=== PATIENT | female | born 1960 | race Caucasian/White ===

== ENCOUNTER → 2017-02-11 | Outpatient (CLI) | payer OTHER | LOC: FIMAGING 07:55 | PROVIDERS: ATTEND Family Medicine | DX: Z12.31 Encounter for screening mammogram for malignant neoplasm of breast (principal) | CPT/HCPCS: G0202 ==

== ENCOUNTER 2017-02-28 14:49 | Emergency (ER) | payer OTHER ==
[2017-02-28 15:07] VITALS: BP 123/78; PULSE 74; RESP 16; TEMP 98.6; O2SAT 97
--- NOTE | 2017-02-28 15:25 | EDPHY ---
H & P Stated Complaint: tripped~ [employer] and hit right head area above eye. No LOC. Time Seen by Provider: 02/28/17 14:59 HPI/ROS: CHIEF COMPLAINT: Fall, black eye HISTORY OF PRESENT ILLNESS: This is a 56-year-old female who tripped over the gas hose while filling her car with gas, striking her right forehead. She did not lose consciousness. She was wearing eyeglasses and reports a laceration above her eyebrow. This occurred 2 hours ago and she has developed a black eye. No change in her vision. She denies headache. She also landed on her right knee, denies injury to the knee. REVIEW OF SYSTEMS: A ten point review of systems was performed and is negative with the exception of the items mentioned in the HPI. Past medical history: 1. Depression 2. Hyperlipidemia Past surgical history: section Social history: She works in [employer]. She does not use tobacco products. General Appearance: Alert. Vital signs reviewed. Visual acuity as per nursing note. Head: Normocephalic. Tenderness palpation of the superior orbital ridge, no step-off or deformity. No crepitus. No other facial bone tenderness. Eyes: Pupils equal and round, no conjunctival injection, no discharge. Periorbital ecchymosis right eye. Superficial laceration measuring 1.5 cm above the right eyebrow. Extraocular movements are full. No injury to the globe. ENT, Mouth: Mucous membranes are moist, no oropharyngeal erythema or edema. No hemotympanum. No septal hematoma. Dentition intact, no trismus. Neck: Nontender to palpation over the cervical spine in the midline. No pain with active range of motion. Respiratory: Lungs are clear to auscultation; no wheezes, rales, or rhonchi. Cardiovascular: Regular rate and rhythm; no murmur, rub, or gallop. Skin: Warm and dry, no rashes on exposed skin, normal color. Extremities: Right knee with FAROM. No swelling, bruising, or tenderness right knee. Neurological: Alert and oriented. Moving all four extremities easily and equally. Cranial nerves II through XII are examined and are intact (visual acuity not tested). Strength is 5 over 5 bilaterally with testing of all major motor groups. Sensation is intact to light touch over all 4 extremities. Gait is normal. Psychiatric: Normal affect. - Personal History Current Tetanus Diphtheria and Acellular Pertussis (TDAP): Yes - Medical/Surgical History Other PMH: High Cholesterol. Hysterectomy - Social History Smoking Status: Never smoked Constitutional: Initial Vital Signs Temperature (C) 37 C 02/28/17 14:55 Heart Rate 74 02/28/17 14:55 Respiratory Rate 16 02/28/17 14:55 Blood Pressure 123/78 H 02/28/17 14:55 O2 Sat (%) 97 02/28/17 14:55 O2 Delivery Mode Room Air Allergies/Adverse Reactions: No Known Allergies Allergy (Verified 02/28/17 15:02) Home Medications: Medication Instructions Recorded Celexa 40mg 01/19/10 Lipitor 20 mg 01/19/10 Vit 01/19/10 Medical Decision Making ED Course/Re-evaluation: Mechanical fall with resultant black eye and superficial laceration. The laceration does not require suturing. I do not think that she has a facial bone fracture, however she does have moderate amount of swelling around her right eye, which could obscure a mild deformity. No limitation of extraocular movements. No injury to the eye itself. She is aware of this. At this point in time, I do not think that imaging is needed. We discussed symptomatic treatment of her black eye. Differential Diagnosis: I considered a differential diagnosis that includes but is not limited to skull fracture, concussion, facial bone fracture, injury to the eye itself, laceration , abrasion, and contusion. Departure - Departure Disposition: Home, Routine, Self-Care Clinical Impression: Periorbital ecchymosis of right eye Qualifiers: Encounter type: initial encounter Qualified Code(s): S00.11XA - Contusion of right eyelid and periocular area, initial encounter Condition: Good Instructions: Black Eye (ED), RICE Therapy (ED) Additional Instructions: Keep your head elevated as much as possible to diminish swelling. Adult Pain & Fever Control: We recommend Acetaminophen (Tylenol) and Ibuprofen (Motrin,Advil) for pain and fever control. When fever is high or pain severe, both drugs can be used at the same time, but at different intervals. Please note the time differences. Your dose is: Acetaminophen 650mg every 4 to 6 hours Ibuprofen 400mg every 6 hours with food OR Note: do not take Acetaminophen with Hydrocodone (Vicodin, Lortab) or Oycodone (Percocet). These medications also contain Acetaminophen. No more than 3000mg of Acetaminophen should be taken in 24 hours (for an adult). Referrals: Cony Phillips MD [Primary Care Provider] - As per Instructions
== END 2017-02-28 15:30 | disposition home or self-care (01) ==
LOC: CED 14:49
DX: S00.11XA Contusion of right eyelid and periocular area, initial encounter (principal); W01.198A Fall on same level from slipping, tripping and stumbling with subsequent striking against other object, initial encounter

== ENCOUNTER → 2018-03-04 | Outpatient (CLI) | payer OTHER | LOC: FIMAGING 09:42 | PROVIDERS: ATTEND Family Medicine | DX: Z12.31 Encounter for screening mammogram for malignant neoplasm of breast (principal) ==